=== PATIENT | female | born 1975 | race Caucasian/White ===

== ENCOUNTER → 2016-10-17 | Outpatient (CLI) | payer OTHER ==
[~2016-10-17] MED LIST: ACETAMINOPHEN650 M3 PO; AUGMENTIN PO; CIPRO250 M1 PO; CLONAZEPAM0.5 MG PO; COLACE PO; DULOXETINE HCL60 MG PO; FLAGYL250 M1 PO; FOLIC ACID1 MG PO; GLUCOPHAGE XR500 MG PO; HUMALOG KW100 UNIT/1 SUBQ; HUMULIN 70100 UNITS/ SUBQ; IRON PO; IRON18 MG PO; LANTUS100 U/M1 SUBQ; LANTUS100 U/ML SUBQ; LASIX20 MG PO; LEVAQUIN PO; LIPITOR20 MG PO; LISINOPRIL5 MG PO; LYRICA100 MG PO; NO MEDICATIONS; NORCO 5/325 TAB1 TAB PO; NOVOLOG100 UNITS/ INJ; PANTOPRAZOLE SO40 MG PO; PERCOCET10 PO; PERCOCET5/325 PO; PHENERGAN25 M1 PO; TYLENOL325 M1 PO; VANCOMYCIN1 GM/150 M IV; ZESTRIL10 M1 PO; ZESTRIL5 MG PO
== END | disposition home or self-care (01) ==
LOC: CSSDAY 13:00
DX: L97.422 Non-pressure chronic ulcer of left heel and midfoot with fat layer exposed (principal); L03.119 Cellulitis of unspecified part of limb; Z79.2 Long term (current) use of antibiotics
CPT/HCPCS: 96365; 96366; J2407; J7060